=== PATIENT | female | born 1960 | race Caucasian/White ===

== ENCOUNTER 2019-10-16 14:29 | Outpatient (CLI) | payer BC, SELFPAY ==
--- NOTE | ~2019-10-16 | US_ITS ---
EXAMINATION: US venous doppler LE RT DATE: 10/16/2019 15:17 INDICATION: Right lower limb pain and swelling. TECHNIQUE: Grayscale ultrasound images without and with compression and Doppler ultrasound images of the right lower extremity veins were obtained. COMPARISON: None. FINDINGS: The visualized portions of right common femoral vein, profunda (deep) femoral vein, femoral vein, pop liteal vein, peroneal trunk, posterior tibial veins, peroneal veins, gastrocnemius vein and greater s aphenous vein outflow are patent. There are couple complex fluid collections which are predominantly hypoechoic with small anechoic regions and without internal flow on color Doppler at the medial popli teal fossa and proximal calf. The smaller which measures 2.4 x 0.8 x 2.1 cm is located at the poplite al fossa appears to extend deep with configuration suggestive of a Angel's cyst. The larger lenticula r collection extends along the periphery of the musculature, likely medial head of the gastrocnemius at the medial left calf and measures 6.7 x 5.3 x 1.6 cm. There does appear to be communication betwee n the 2 fluid collections. IMPRESSION: 1. No deep venous thrombosis in the right lower limb. 2. A couple loculated complex fluid collections at the right popliteal fossa extending to the medial left calf which could represent either Angel's cyst with marked synovitis, blood or other proteinaceo us fluid, or hematoma related to trauma such as contusion or muscle strain. Differential would also i nclude abscess in the appropriate clinical setting although there is no surrounding hyperemia to elev ate suspicion. Reviewed, dictated and finalized at location A. IMPRESSION: 1. No deep venous thrombosis in the right lower limb. 2. A couple loculated complex fluid collections at the right popliteal fossa ex tending to the medial left calf which could represent either Angel's cyst with marked synovitis, blood or other proteinaceous fluid, or hematoma related to tr auma such as contusion or muscle strain. Differential would also include absces s in the appropriate clinical setting although there is no surrounding hyperemi a to elevate suspicion.
== END 2019-10-16 14:30 | disposition home or self-care (01) ==
PROVIDERS: PCP Physician Assistant; Visit Provider Physician Assistant
DX: M79.89 Other specified soft tissue disorders (principal)
CPT/HCPCS: 93971

== ENCOUNTER 2019-11-29 15:46 | Outpatient (CLI) | payer BC, SELFPAY ==
--- NOTE | ~2019-11-29 | XR_ITS ---
EXAMINATION: XR elbow LT 2V DATE: 11/29/2019 16:14 INDICATION: Posterior left elbow pain and swelling post fall TECHNIQUE: Anteroposterior and lateral views of the left elbow were obtained. COMPARISON: None. FINDINGS: Alignment is normal. No fracture or joint effusion. Joint spaces are normal. Minimal soft tissue swel ling posterior to the olecranon. IMPRESSION: 1. No left elbow joint effusion or osseous abnormality.. Reviewed, dictated and finalized at location A.
== END 2019-11-29 15:47 | disposition home or self-care (01) ==
PROVIDERS: PCP Family Medicine; Visit Provider Family Medicine
DX: M79.602 Pain in left arm (principal); M79.89 Other specified soft tissue disorders
CPT/HCPCS: 73070

== ENCOUNTER → 2019-12-21 08:12 | Outpatient (CLI) | payer BC, SELFPAY ==
--- NOTE | ~2019-12-21 | MR_ITS ---
EXAMINATION: MR knee RT wo con DATE: 12/21/2019 08:55 INDICATION: Right knee pain and swelling TECHNIQUE: Magnetic resonance imaging (MRI) of the right knee was performed without intravenous contr ast. Sequences included coronal PD-weighted FSE, coronal PD-weighted FS FSE, sagittal T2-weighted FS E, sagittal PD-weighted FS FSE and axial PD weighted fat saturated FSE. COMPARISON: Right knee radiographs dated 11/01/2019 FINDINGS: Medial compartment: Mild increased intrasubstance signal at the posterior horn of the medial meniscus which does not cont act the articular surface consistent with mucoid degeneration without discrete tear. Articular carti nikky is normal. Lateral compartment: Lateral meniscus is normal. Chondral fissuring with minimal underlying subarticular edema at the medi al side of the lateral tibial plateau along the shoulder the intercondylar eminence. Patellofemoral compartment: Deep chondral fissuring without degenerative subarticular changes at the inferior aspect of the later al patellar facet and extending across the central aspect of the patellar apical ridge and medial fac et. Chondral fissuring with underlying mild cortical irregularity and subarticular edema at the centr al inferior aspect of the trochlear groove. Ligaments and tendons: Anterior and posterior cruciate ligaments are normal. There is thickening and mild increased signal a t the proximal fibular collateral ligament without surrounding edema consistent with scarring related to chronic sprain. There is mild fluid signal extending proximally and distally along the deep and s uperficial margin of the otherwise normal-appearing medial collateral ligament which is likely reacti ve related to the large knee joint effusion however in the the clinical setting of acute injury this would also be consistent with an acute low-grade sprain. The extensor mechanism is normal. The visual ized medial and lateral hamstring tendons as well as the iliotibial band are normal. Fluid: Large right knee joint effusion with mild synovitis at the suprapatellar pouch and along the posterio r margin of Hoffa's fat pad. There is extension of a small amount of fluid as well as mild synovitis within the popliteal recess. Additional synovitis within a moderate-sized Angel's cyst with mild surr ounding edema. No loose osteochondral bodies identified. Osseous/other: Bone alignment is normal. Red marrow reexpansion in the metadiaphyseal region of the distal femur. No fracture or pathologic marrow replacing process. IMPRESSION: 1. Mild osteoarthritis with regions of moderate grade chondromalacia in the lateral compartment and m oderate to high-grade chondromalacia in the patellofemoral compartment. 2. Nonspecific large right knee joint effusion. Could consider diagnostic arthrocentesis. 3. Fluid signal along side the otherwise normal-appearing medial collateral ligament which in the set ting of acute knee injury be consistent with low-grade ligament sprain. In the absence of trauma this is more likely reactive related to the joint effusion. 4. Moderate-sized Angel's cyst. Reviewed, dictated and finalized at location A. IMPRESSION: 1. Mild osteoarthritis with regions of moderate grade chondromalacia in the lat eral compartment and moderate to high-grade chondromalacia in the patellofemora l compartment. 2. Nonspecific large right knee joint effusion. Could consider diagnostic arthr ocentesis. 3. Fluid signal along side the otherwise normal-appearing medial collateral lig ament which in the setting of acute knee injury be consistent with low-grade li gament sprain. In the absence of trauma this is more likely reactive related to the joint effusion. 4. Moderate-sized Angel's cyst.
== END ==
PROVIDERS: PCP Family Medicine; Visit Provider Orthopaedic Surgery
DX: M71.21 Synovial cyst of popliteal space [Baker], right knee (principal); M17.11 Unilateral primary osteoarthritis, right knee
CPT/HCPCS: 73721

== ENCOUNTER 2019-12-27 15:17 | Outpatient (CLI) | payer BC, SELFPAY ==
--- NOTE | ~2019-12-27 | MM_ITS ---
EXAMINATION: MM screening [facility] BI w sonia HISTORY: Screening mammogram TECHNIQUE: Craniocaudal and mediolateral oblique 3-D tomosynthesis images were obtained and synthetic 2-D images were generated. CAD analysis was submitted and interpreted. COMPARISON: 09/28/2017, 02/13/2016, 02/09/2016, 10/18/2014 BREAST PARENCHYMAL COMPOSITION: There are scattered areas of fibroglandular density. FINDINGS: Stable intramammary lymph node is present in the posterior third of the outer right breast. There is no evidence of suspicious mass, calcification, or architectural distortion to suggest malig angy in either breast. There has been no suspicious interval change. IMPRESSION: 1. No mammographic evidence of malignancy. 2. Recommend routine screening mammography in one year. BI-RADS Category 1: Negative Reviewed, dictated and finalized at location A.
== END 2019-12-27 15:18 | disposition home or self-care (01) ==
LOC: ANHIMG 15:18
PROVIDERS: PCP Family Medicine; Visit Provider Physician Assistant
DX: Z12.31 Encounter for screening mammogram for malignant neoplasm of breast (principal)
CPT/HCPCS: 77063; 77067

== ENCOUNTER → 2019-12-27 15:39 | Outpatient (CLI) | payer BC, SELFPAY ==
--- NOTE | ~2019-12-27 | XR_ITS ---
XR hand RT min 3V, XR hand LT min 3V 12/27/2019 15:52 Indication: Primary generalized osteoarthritis. Joint pain. Procedure: 3 views of each hand Comparison: No prior studies for comparison. Findings: There is mild osteoarthritis of the right triscaphe, first CMC, MCP and IP joints. Normal m ineralization. No fracture or traumatic malalignment. Corticated ossific density adjacent to the ulna r styloid, likely an old avulsion fracture. No foreign bodies. 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 2: No significant abnormality of the left hand. Reviewed, dictated and finalized at location B. 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 2: No significant abnormality of the left hand. 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 2: No significant abnormality of the left hand.
== END ==
PROVIDERS: PCP Family Medicine
DX: M15.0 Primary generalized (osteo)arthritis (principal)
CPT/HCPCS: 73130

== ENCOUNTER 2020-01-24 08:31 | Outpatient (CLI) | payer BC, SELFPAY ==
--- NOTE | ~2020-01-24 | MR_ITS ---
EXAMINATION: MR knee LT wo con DATE: 01/24/2020 09:27 INDICATION: Chronic generalized left knee pain. TECHNIQUE: Magnetic resonance imaging (MRI) of the left knee was performed without intravenous contra st. Sequences included coronal PD-weighted FSE, coronal PD-weighted FS FSE, sagittal T2-weighted FSE , sagittal PD-weighted FS FSE and axial PD weighted fat saturated FSE. COMPARISON: None. FINDINGS: Evaluation mildly limited by small amount of motion artifact or blurring most prominent on the fat-sa turated images. Medial compartment: Medial meniscus is normal. Partial-thickness chondral fissuring without degenerative subarticular gil nges at the central aspect of the anterior weightbearing medial femoral condyle. Lateral compartment: Lateral meniscus is normal. Partial-thickness chondral fissuring without degenerative subarticular ch anges at the posterior central aspect of the lateral tibial plateau. Patellofemoral compartment: Partial-thickness cartilage loss and fissuring at the patellar apical ridge. Ligaments and tendons: The posterior cruciate ligament is normal. The anterior cruciate ligament demonstrates a normal angle relative to Blumensaat line. It appears thickened with prominent increased intrasubstance signal adry rounding a subtle low signal intensity linear ligament fibers resulting in a celery stalk appearanc e which would be consistent with mucoid degeneration without definitive tear. The medial collateral l igament and fibular collateral ligament complex are normal. The extensor mechanism is normal. The vis ualized medial and lateral hamstring tendons as well as the iliotibial band are normal. Fluid: Large left knee joint effusion with synovitis, mild at the suprapatellar pouch and more prominent aye ng the posterior margins of Hoffa's fat pad. Moderate-sized multiloculated Angel's cyst. There is a s mall loose body within a deeper component of the Angel's cyst. No intra-articular loose osteochondral bodies identified. Osseous/other: There is mild marrow edema in the femur at the medial side of the intercondylar notch which appears c entered along the footplate of the anterior cruciate ligament. Mild cystic change at the proximal tib ia at the posterior aspect of the intercondylar eminence near the insertion of the posterior cruciate ligament and posterior horn of the lateral meniscus. Otherwise normal marrow signal. No fracture or pathologic marrow replacing process. IMPRESSION: 1. Prominent mucoid degeneration of the anterior cruciate ligament without definitive tear. Correlate with physical exam to assess for degree of functional integrity. 2. Mild tricompartmental osteoarthritis with regions of moderate grade chondromalacia in all 3 compar tments as detailed above. 3. Large knee joint effusion with prominent synovitis along the posterior margin of Hoffa's fat pad. 4. Moderate-sized Angel's cyst. Reviewed, dictated and finalized at location A. IMPRESSION: 1. Prominent mucoid degeneration of the anterior cruciate ligament without defi nitive tear. Correlate with physical exam to assess for degree of functional in tegrity. 2. Mild tricompartmental osteoarthritis with regions of moderate grade chondrom alacia in all 3 compartments as detailed above. 3. Large knee joint effusion with prominent synovitis along the posterior angeline n of Hoffa's fat pad. 4. Moderate-sized Angel's cyst.
== END 2020-01-24 08:32 | disposition home or self-care (01) ==
PROVIDERS: PCP Family Medicine; Visit Provider Orthopaedic Surgery
DX: M71.22 Synovial cyst of popliteal space [Baker], left knee (principal); M25.462 Effusion, left knee; M17.12 Unilateral primary osteoarthritis, left knee
CPT/HCPCS: 73721

== ENCOUNTER 2020-02-11 08:46 | Outpatient (CLI) | payer BC, SELFPAY ==
--- NOTE | 2020-02-11 08:49 | ECG_ITS ---
Measurements Intervals [place] Rate: 81 P: 33 CT: 151 QRS: 28 QRSD: 83 T: 82 QT: 357 QTc: 416 Interpretive Statements SINUS RHYTHM DELAYED PRECORDIAL R/S TRANSITION CONSIDER INFERIOR INFARCT, AGE INDETERMINATE NONSPECIFIC T-WAVE ABNORMALITY- HIGH LATERAL LEADS BASELINE ARTIFACT- I, III, AVL ABNORMAL ECG Electronically Signed On 02-11-2020 9:01:11 CDT by Julián Wiggins D.O.
== END 2020-02-11 08:47 | disposition home or self-care (01) ==
LOC: ANHSURGERY 08:49
PROVIDERS: PCP Family Medicine; Visit Provider Orthopaedic Surgery
DX: E78.5 Hyperlipidemia, unspecified (principal); R94.31 Abnormal electrocardiogram [ECG] [EKG]
CPT/HCPCS: 93005

== ENCOUNTER 2020-02-18 00:54 | Outpatient (CLI) | payer BC, SELFPAY ==
[2020-02-18 16:32] LABS: SARS-CoV-2 RNA PCR Negative
== END 2020-02-18 00:55 | disposition home or self-care (01) ==
LOC: ANHCOVIDDT 00:55
PROVIDERS: PCP Family Medicine; Visit Provider Orthopaedic Surgery
DX: Z01.812 Encounter for preprocedural laboratory examination (principal); Z20.828 Contact with and (suspected) exposure to other viral communicable diseases
CPT/HCPCS: 87635; C9803; U0003

== ENCOUNTER 2020-02-20 00:40 | Day surgery (SDC) | payer BC, SELFPAY ==
[2020-02-07 11:17] VITALS: BMI 42.5
[2020-02-20] VITALS (10 sets, daily range): BP systolic 119–168; BP diastolic 58–93; PULSE 85–105; RESP 10–20; TEMP 36.1–36.9; O2SAT 98–100
--- NOTE | 2020-02-20 06:51 | WPDANESEPPF ---
Anes - Initial Pre Proc Eval Procedure: Operation Date: 02/20/20 07:30 Proposed Procedures p Left Knee Arthroscopy, Proceed As Indicated - Gerardo Joiner MD Date/Time: 02/20/20 06:51 Surgeon: Gerardo Joiner MD Pre Op Diagnosis: Left Knee Chondromalacia Patient Data Age: 59 Gender: F Height: 5 ft 5 in Weight: 116.1 kg Allergies Allergy/AdvReac Type Severity Reaction Status Date / Time No Known Allergies Allergy NONE Verified 02/20/20 06:14 Home Medications Medication Instructions Recorded Confirmed Type simvastatin 40 mg tablet 40 mg PO DAILY #90 tablet 07/17/19 02/20/20 Rx duloxetine 60 mg capsule,delayed 60 mg PO DAILY 09/28/19 02/20/20 History release ergocalciferol (vitamin D2) 1,250 1,250 mcg PO WEEKLY 12/11/19 02/20/20 History mcg (50,000 unit) capsule chlorhexidine gluconate 4 % 1 applic TOPICAL ONCE #237 ml 02/05/20 02/20/20 Rx topical liquid Doterra On Guard 1 cap PO DAILY 02/07/20 02/20/20 History glucos sul [id number] 1 cap PO DAILY 02/07/20 02/20/20 History [Glucosamine Chondroitin] Patient hx anesthesia problems: none Family hx anesthesia problems: none PMFSH Past Medical History Medical History Arthritis High cholesterol Sleep apnea Surgical History Surgical History S/P hysterectomy Family History Family History Father Carcinoma of colon Patient's father is Mother Family history of malignant neoplasm of breast in first degree relative Grandparent Family history of malignant neoplasm of breast Other Cerebrovascular accident Diabetes mellitus Family history of gout Social History Social History Smoking packs per day: 0.5 Smoking cigarettes per day: 10.0 Years smoked: 5 Smoking pack-years: 2.50 Smoking status: Former smoker Tobacco type: cigarettes Second hand tobacco smoke exposure: No Smoking end date: 06/13/84 Additional smoking assessment comments: QUIT 1994 Alcohol intake: never Spiritual care concerns: No Anes - Eval Final PreProcedure Day of Procedure 02/20/20 06:51 Patient weight: morbidly obese Heart: regular rate and rhythm Lungs: clear to auscultation Airway: Mallampati scale class II Neurological: alert and oriented Last oral intake: >/= 8 hours ASA classification: III Emergent: no Anesthetic plan: proceed Anesthesia type and monitoring: general LMA and standard monitoring Informed Consent: The patient's anesthetic plan and its attendant risks and benefits were discussed with the patient/family/POA. Questions were solicited and answers provided to the satisfaction of the patient/family/POA.
[2020-02-20] MEDS: CELECOXIB 200 MG CAPSULE PO (06:58)
[2020-02-20] MEDS: LACTATED RINGERS 1,000 ML 30 ML IV CONT ×2 (06:58→08:42)
[2020-02-20] MEDS: ACETAMINOPHEN 500 MG TABLET 1000 MG PO (06:58)
--- NOTE | 2020-02-20 07:15 | WPDHPUPDATE1 ---
History and Physical Update Update Date/Time: 02/20/20 07:15 History and Physical has been reviewed, including an updated exam of the patient. There are NO changes in the patient's condition. Risks, benefits, and alternatives have been discussed and questions answered. Patient agrees to proceed with procedure.
[2020-02-20] MEDS: ceFAZolin 2 GM/D5W 50 ML 2 GM/50 ML BAG IVPB (07:27)
--- NOTE | 2020-02-20 08:43 | PM.PROC ---
Procedure Note - Detailed Date of procedure: 02/20/20 Pre-op diagnosis: Left Knee Chondromalacia Post-op diagnosis: other (medial meniscus tear, lateral meniscus tear, chondromalacia, synovitis) Procedure performed: LEFT KNEE SCOPE WITH PARTIAL MEDIAL MENISCECTOMY, PARTIAL LATERAL MENISCECTOMY AND MAJOR SYNOVECTOMY Description of procedure: PATIENT WAS TAKEN TO THE OR. LEFT LEG WAS PREPPED AND DRAPED STERILE. TROCARS WERE PLACED IN THE USUAL FASHION. CAMERA WAS INTRODUCED. THERE WAS CHONDROMALACIA TO THE PATELLA FEMORAL JOINT. THERE WAS A LOT OF SYNOVITIS IN ALL COMPARTMENTS. THE MEDIAL COMPARTMENT SHOWED CHONDROMALACIA TO THE MED FEMORAL CONDYLE. A SHAVER WAS USED TO PREFORM A CHONDROPLASTY. THERE WAS A COMPLEX MEDIAL MENISCUS TEAR. THE TEAR WAS RESECTED WITH A BITER AND A SHAVER DOWN TO A SMOOTH BASE. ABOUT 15% OF THE MENISCUS WAS REMOVED. THE ACL WAS INTACT. THE LATERAL MENISCUS WAS TORN AT THE ANTERIOR HORN. THE TEAR WAS RESECTED. THE LAT COMPARTMENT HAD GRADE 2 CHONDROMALACIA AT THE LATERAL PLATEAU. CHONDROPLASTY WAS PREFORMED. A SYNOVECTOMY WAS PREFORMED WELL. THE PATELLO FEMORAL JOINT UNDERWENT CHONDROPLASTY. THERE WAS GRADE 3 CHONDROMALACIA IN MOST OF THE TROCHLEA AND PART OF THE PATELLA. SYNOVECTOMY WAS PREFORMED IN THE SUPERIOR MEDIAL COMPARTMENT. THE WOUNDS WERE APPROXIMATED WITH 4.0 NYLON. STERILE DRESSING WAS APPLIED. PATIENT WAS EXTUBATED. Anesthesia: GLMA Surgeon: Gerardo Joiner MD Estimated blood loss (mL): 5 Complications: No immediate complications Condition: stable Disposition: PACU
--- NOTE | 2020-02-20 09:30 | SUR.PHASEI ---
Dr. Love aware of high BP and said to follow up w/ primary doctor and just monitor for now.
== END 2020-02-20 10:39 | disposition home or self-care (01) ==
PROVIDERS: PCP Family Medicine; Visit Provider Orthopaedic Surgery
PROC: (CPT 29870; principal; 2020-02-20 07:30)
DX: M22.42 Chondromalacia patellae, left knee (principal); M23.332 Other meniscus derangements, other medial meniscus, left knee; M23.342 Other meniscus derangements, anterior horn of lateral meniscus, left knee; M65.852 Other synovitis and tenosynovitis, left thigh; E78.00 Pure hypercholesterolemia, unspecified; G47.30 Sleep apnea, unspecified; Z87.891 Personal history of nicotine dependence; E66.01 Morbid (severe) obesity due to excess calories; Z68.41 Body mass index [BMI] 40.0-44.9, adult
CPT/HCPCS: 29880; A9270; J0690; J1100; J2250; J2405; J2704; J3010; J7120

== ENCOUNTER 2020-04-19 01:09 | Outpatient (CLI) | payer BC, SELFPAY ==
[2020-04-19 22:26] LABS: SARS-CoV-2 RNA PCR Negative
== END 2020-04-19 01:10 | disposition home or self-care (01) ==
LOC: ANHCOVIDDT 01:09
PROVIDERS: PCP Family Medicine; Visit Provider Orthopaedic Surgery
DX: Z01.818 Encounter for other preprocedural examination (principal); Z20.828 Contact with and (suspected) exposure to other viral communicable diseases
CPT/HCPCS: 87635; C9803; U0003

== ENCOUNTER 2020-04-23 00:38 | Day surgery (SDC) | payer BC, SELFPAY ==
[2020-04-11 09:53] VITALS: BMI 42.5
--- NOTE | 2020-04-22 13:35 | WPDANESEPPF ---
Anes - Initial Pre Proc Eval Procedure: Operation Date: 04/23/20 10:00 Proposed Procedures p Right Knee Arthroscopy, Proceed As Indicated - Gerardo Joiner MD Date/Time: 04/22/20 13:35 Surgeon: Gerardo Joiner MD Pre Op Diagnosis: right knee chondromylasia Patient Data Age: 60 Gender: F Height: 1.65 m Weight: 116.12 kg Allergies Allergy/AdvReac Type Severity Reaction Status Date / Time No Known Allergies Allergy NONE Verified 04/23/20 08:06 Home Medications Medication Instructions Recorded Confirmed Type ergocalciferol (vitamin D2) 1,250 1,250 mcg PO WEEKLY 12/11/19 04/23/20 History mcg (50,000 unit) capsule Doterra On Guard 1 cap PO DAILY 02/07/20 04/23/20 History Glucosamine Chondroitin 1 cap PO DAILY 02/07/20 04/23/20 History duloxetine 30 mg capsule,delayed 90 mg PO DAILY #90 cap 03/19/20 04/23/20 Rx release simvastatin 40 mg tablet 40 mg PO DAILY #90 tablet 04/21/20 04/23/20 Rx Patient hx anesthesia problems: none Family hx anesthesia problems: none PMFSH Past Medical History Medical History (Updated 04/22/20 @ 13:36 by Yayo Herbert MD) Anxiety and depression Arthritis Depression Essential hypertension High cholesterol Hyperlipidemia Hypothyroidism IFG (impaired fasting glucose) Morbid obesity with BMI of 40.0-44.9, adult AMBER (obstructive sleep apnea) Sleep apnea Surgical History Surgical History S/P hysterectomy Family History Family History Father Carcinoma of colon Patient's father is Mother Family history of malignant neoplasm of breast in first degree relative Grandparent Family history of malignant neoplasm of breast Other Cerebrovascular accident Diabetes mellitus Family history of gout Social History Social History Smoking packs per day: 0.5 Smoking cigarettes per day: 10.0 Years smoked: 5 Smoking pack-years: 2.50 Smoking status: Former smoker Tobacco type: cigarettes Second hand tobacco smoke exposure: No Smoking end date: 06/13/84 Additional smoking assessment comments: QUIT 1994 Alcohol intake: never Substance use: never Substance use type: does not use Gender identity (if verbalized by the patient): Female Spiritual care concerns: No Anes - Eval Final PreProcedure Day of Procedure 04/22/20 13:35 Patient weight: morbidly obese Heart: regular rate and rhythm Lungs: clear to auscultation and normal air movement Airway: Mallampati scale class II Neurological: alert and oriented Last oral intake: >/= 8 hours ASA classification: III Emergent: no Anesthetic plan: proceed Anesthesia type and monitoring: general LMA Informed Consent: The patient's anesthetic plan and its attendant risks and benefits were discussed with the patient/family/POA. Questions were solicited and answers provided to the satisfaction of the patient/family/POA.
[2020-04-23] VITALS (11 sets, daily range): BP systolic 87–162; BP diastolic 40–94; PULSE 99–113; RESP 11–18; TEMP 36.1; O2SAT 95–100
[2020-04-23] MEDS: CELECOXIB 200 MG CAPSULE PO (08:23)
[2020-04-23] MEDS: ACETAMINOPHEN 500 MG TABLET 1000 MG PO (08:23)
[2020-04-23] MEDS: LACTATED RINGERS 1,000 ML 30 ML IV CONT ×2 (08:25→11:59)
--- NOTE | 2020-04-23 10:15 | SUR.PREOP ---
0900 PT DENIES NEEDS AT THIS TIME 1015 PT UPDATED ON SURGRY TIME DELAY
--- NOTE | 2020-04-23 10:23 | WPDHPUPDATE1 ---
History and Physical Update Update Date/Time: 04/23/20 10:23 History and Physical has been reviewed, including an updated exam of the patient. There are NO changes in the patient's condition. Risks, benefits, and alternatives have been discussed and questions answered. Patient agrees to proceed with procedure.
[2020-04-23] MEDS: ceFAZolin 2 GM/D5W 50 ML 2 GM/50 ML BAG IVPB (10:29)
[2020-04-23] MEDS: BUPIVACAINE HCL 0.5% PF 30 ML VIAL INFILTRATE (11:16)
--- NOTE | 2020-04-23 11:42 | P.OP_ITS ---
Procedure Note - Detailed Date of procedure: 04/23/20 Pre-op diagnosis: right knee chondromylasia Post-op diagnosis: other Procedure performed: MEDIAL MEN TEAR, LATERAL MENISCUS TEAR Description of procedure: PATIENT WAS TAKEN TO THE OR. RIGHT LEG WAS PREPPED AND DRAPED STERILE. TROCARS WERE PLACED IN THE USUAL FASHION. CAMERA WAS INTRODUCED. THERE WAS ABUNDANT FIBRINOUS SYNOVITIS. THERE WAS CHONDROMALACIA TO THE PATELLA FEMORAL JOINT. THERE WAS A LOT OF SYNOVITIS IN ALL COMPARTMENTS. THE MEDIAL COMPARTMENT SHOWED CHONDROMALACIA TO THE MED FEMORAL CONDYLE. A SHAVER WAS USED TO PREFORM A CHONDROPLASTY. THERE WAS A COMPLEX MEDIAL MENISCUS TEAR. THE TEAR WAS RESECTED WITH A BITER AND A SHAVER DOWN TO A SMOOTH BASE. ABOUT 10% OF THE MENISCUS WAS REMOVED. THE ACL WAS INTACT. THE LATERAL MENISCUS WAS TORN AT THE POSTERIOR ROOT. THE TEAR WAS RESECTED. THE LAT COMPARTMENT HAD GRADE 2 CHONDROMALACIA AT THE LATERAL PLATEAU. CHONDROPLASTY WAS PREFORMED. A SYNOVECTOMY WAS PREFORMED WELL. THE PATELLO FEMORAL JOINT UNDERWENT MARIO DROPLASTY. THERE WAS GRADE 3 CHONDROMALACIA OF THE TROCHLEA AND PART OF THE PATELLA. SYNOVECTOMY WAS PREFORMED IN THE SUPERIOR MEDIAL COMPARTMENT. THE WOUNDS WERE APPROXIMATED WITH 4.0 NYLON. STERILE DRESSING WAS APPLIED. PATIENT WAS EXTUBATED. Anesthesia: GLMA Surgeon: Gerardo Joiner MD Estimated blood loss (mL): 5 Complications: No immediate complications Condition: stable Disposition: PACU
[2020-04-23] MEDS: oxyCODONE HCL (*CRX) 5 MG TAB IR PO (13:00)
== END 2020-04-23 14:01 | disposition home or self-care (01) ==
PROVIDERS: PCP Family Medicine; Visit Provider Orthopaedic Surgery
PROC: (CPT 29870; principal; 2020-04-23 10:00)
DX: M22.41 Chondromalacia patellae, right knee (principal); S83.231A Complex tear of medial meniscus, current injury, right knee, initial encounter; S83.281A Other tear of lateral meniscus, current injury, right knee, initial encounter; M65.9 Synovitis and tenosynovitis, unspecified; I10 Essential (primary) hypertension; E78.5 Hyperlipidemia, unspecified; E03.9 Hypothyroidism, unspecified; G47.33 Obstructive sleep apnea (adult) (pediatric); E66.01 Morbid (severe) obesity due to excess calories; Z68.41 Body mass index [BMI] 40.0-44.9, adult; F41.9 Anxiety disorder, unspecified; F32.9 Major depressive disorder, single episode, unspecified; Z79.899 Other long term (current) drug therapy; Z87.891 Personal history of nicotine dependence; X58.XXXA Exposure to other specified factors, initial encounter; Y93.9 Activity, unspecified; Y92.9 Unspecified place or not applicable; Y99.9 Unspecified external cause status
CPT/HCPCS: 29880; A9270; J0690; J1100; J2250; J2405; J2704; J3010; J7120

== ENCOUNTER 2020-12-13 19:35 | Emergency (ER) | payer BC, SELFPAY ==
[2020-12-13 19:37] VITALS: BP 151/81; PULSE 90; RESP 18; TEMP 37.2; O2SAT 100
--- NOTE | 2020-12-13 20:36 | ED.GENADULT ---
HPI - General Adult General Chief complaint: Skin/Abscess/Foreign Body Stated complaint: FOREIGN BODY GI/EPIGASTRIC DISCOMFORT Time Seen by Provider: 12/13/20 20:11 Source: patient Mode of arrival: ambulatory Limitations: no limitations History of Present Illness HPI narrative: Patient is a 6-year-old female complaining of pain when she swallows, felt like the waffle got stuck in my chest . Patient states that she was eating waffle this afternoon and felt like it got stuck in her throat. Patient states that she tried to eat pizza few hours after and it was pain when she swallowed. Patient states that she was able to tolerate liquids, keep it down without spitting up or vomiting. Patient states that she has been drinking to flush it down able to tolerate it but it still hurts when she tries to swallow. Denies any similar episodes in the past. Related Data Home Medications Medication Instructions Recorded Confirmed ergocalciferol (vitamin D2) 1,250 1,250 mcg PO WEEKLY 12/11/19 11/17/20 mcg (50,000 unit) capsule Doterra On Guard 1 cap PO DAILY 02/07/20 11/17/20 Glucosamine Chondroitin 1 cap PO DAILY 02/07/20 11/17/20 hydroxychloroquine 200 mg tablet 200 mg PO BID 11/17/20 11/17/20 Allergies Allergy/AdvReac Type Severity Reaction Status Date / Time No Known Allergies Allergy NONE Verified 12/13/20 20:07 Review of Systems Review of Systems: All systems reviewed & are unremarkable except as noted in HPI and below Constitutional: Constitutional: Denies body ache(s), Denies chills, Denies excessive sweating, Denies fatigue, Denies fever(s), Denies headache(s), Denies lethargy, Denies malaise, Denies weakness and Denies weight loss Eyes: Eyes: Denies blurry vision, Denies change in vision and Denies loss of vision ENT: Denies dizziness, Denies ear discharge, Denies headache(s), Denies lip swelling, Denies epistaxis, Denies nasal congestion, Denies neck pain, Denies throat swelling and Denies tongue swelling Cardiovascular: Cardiovascular: Denies chest pain, Denies chest pain at rest, Denies chest pain with activity, Denies diaphoresis, Denies rapid heart rate, Denies edema, Denies irregular heart rhythm, Denies lightheadedness, Denies palpitations, Denies dyspnea and Denies dyspnea on exertion Respiratory: Respiratory: Denies chest congestion, Denies cough, Denies hemoptysis, Denies dyspnea and Denies dyspnea on exertion Gastrointestinal: Gastrointestinal: Denies abdominal pain, Denies melena, Denies hematochezia, Denies diarrhea, Denies nausea, Denies vomiting and Denies hematemesis Musculoskeletal: Musculoskeletal: Denies abnormal gait, Denies deformity, Denies joint swelling, Denies limited range of motion, Denies neck pain and Denies numbness Neurologic: Denies Abnormal speech present, Denies abnormal gait, Denies confusion, Denies dizziness, Denies headache(s), Denies focal weakness, Denies loss of vision, Denies numbness, Denies Other visual disturbances, Denies Sensory deficit (Neuro) and Denies weakness Psychiatric: Psychiatric: Denies confusion, Denies depression, Denies auditory hallucinations, Denies homicidal ideation and Denies suicidal ideation Endocrine: Endocrine: Denies cold intolerance, Denies excessive sweating, Denies fatigue, Denies heat intolerance and Denies palpitations Hematologic/Lymphatic: Hematologic/Lymphatic: Denies easy bleeding and Denies easy bruising Allergic/Immunologic: Allergic/Immunologic: Denies lip swelling, Denies throat swelling and Denies tongue swelling PMFSH Past Medical History Medical History Anxiety and depression Arthritis Depression Essential hypertension High cholesterol Hyperlipidemia Hypothyroidism IFG (impaired fasting glucose) Morbid obesity with BMI of 40.0-44.9, adult AMBER (obstructive sleep apnea) Sleep apnea Surgical History Surgical History S/P hysterec
[2020-12-13 22:19] VITALS: BP 136/78; PULSE 78; RESP 18; O2SAT 100
== END 2020-12-13 22:19 | disposition home or self-care (01) ==
PROVIDERS: Emergency Provider Emergency Medicine; PCP Family Medicine
DX: T18.128A Food in esophagus causing other injury, initial encounter (principal); I10 Essential (primary) hypertension; F41.9 Anxiety disorder, unspecified; E03.9 Hypothyroidism, unspecified; F32.9 Major depressive disorder, single episode, unspecified; E78.5 Hyperlipidemia, unspecified; F17.210 Nicotine dependence, cigarettes, uncomplicated
CPT/HCPCS: 99281

== ENCOUNTER → 2021-10-31 10:33 | Outpatient (CLI) | payer BC, SELFPAY ==
--- NOTE | ~2021-10-31 | MM_ITS ---
EXAMINATION: MM screening kylie BI w sonia HISTORY: Screening mammogram TECHNIQUE: Craniocaudal and mediolateral oblique 3-D tomosynthesis images were obtained and synthetic 2-D images were generated. CAD analysis was submitted and interpreted. COMPARISON: 12/27/2019 bilateral screening mammogram 09/28/2017 bilateral diagnostic mammogram BREAST PARENCHYMAL COMPOSITION: There are scattered areas of fibroglandular density. FINDINGS: Stable circumscribed benign-appearing intramammary and axillary lymph nodes There is no salma dence of suspicious mass, calcification, or architectural distortion to suggest malignancy in either breast. There has been no suspicious interval change. IMPRESSION: 1. No mammographic evidence of malignancy. 2. Recommend routine screening mammography in one year. BI-RADS Category 2: Benign finding(s). Reviewed, dictated and finalized at location A.
== END ==
PROVIDERS: PCP Family Medicine; Visit Provider Physician Assistant
DX: Z12.31 Encounter for screening mammogram for malignant neoplasm of breast (principal)
CPT/HCPCS: 77063; 77067

== ENCOUNTER 2022-01-05 08:03 | Outpatient (CLI) | payer BC, SELFPAY ==
--- NOTE | 2022-01-27 18:55 | WPDHOMESLEEP ---
Sleep Study - Home Unattended Date of Study: 01/05/22 Ordering Provider: ALISON Guerra Interpreting Provider: Haylee Guillen MD Home Sleep Study Type: Apnea Link Air Height: 1.65 m Weight: 63.503 kg Body Mass Index: 23.3 Neck Circumference (inches): 16 [place]: 15 Reason for Sleep Study Hypersomnolence Sleep History Nichelle Jenkins is a 61-year-old woman with complaints of Restless sleep with frequent tossing and turning at night. She has used an orthodontic device for snoring. She does not awaken from sleep feeling short of breath. She occasionally awakens at night with heartburn, belching or coughing. She frequently snores loudly. She rarely has trouble sleeping with a cold. She does not wake up gasping for breath at night. She constantly sweats excessively at night. She does not notice her heart pounding or beating irregularly at night. She occasionally falls asleep during the day, rarely falls asleep involuntarily but never falls asleep while driving. She does not have loss of muscle tone with strong emotion. She rarely has daytime difficulties due to excessive sleepiness. She does not feel paralyzed on waking or falling asleep and does not have vivid dreamlike scenes upon awakening or falling asleep. She does not feel afraid to go to sleep. She occasionally has nightmares. She frequently remembers her dreams. She frequently has thoughts racing through her mind. She depressed. She rarely has anxiety. She occasionally has muscular tension. She occasionally notices parts of her body jerking. She does not kick at night. She occasionally has crawling and aching feelings in her legs. She rarely experiences any kind of leg pain night. She does not have morning jaw pain or grind her teeth during sleep. She occasionally is bothered by pain during the day. She is not awakened by pain at night. She rarely wakes up feeling stiff in the morning with sore achy muscles are pain in the neck and spine. She has fatigue, memory problems. Normal bedtime is 8:00 p.m. falling asleep within 30 minutes typically awaken 3-4 times at night to get a drink, go to the bathroom and returns to sleep within 15-20 minutes. She wakes at 5-6 the morning. On weekends she stays awake later, 9:00 p.m. and wakes a little later, 8-12 noon. She estimates getting 8-9 hours of sleep at night. She does not take naps in the afternoon or evening. A short nap is not refreshing. She is usually drowsy in the morning for 2 hours or longer. She feels better in the afternoon compared to other times of day. Habits: Quit tobacco years ago. Caffeine 3-4 cups per day. No alcohol or recreational drugs. [facility] Past Medical History Medical History Anxiety and depression Arthritis Depression Diabetes type 2, controlled Essential hypertension High cholesterol Hyperlipidemia Hypothyroidism IFG (impaired fasting glucose) Morbid obesity with BMI of 40.0-44.9, adult AMBER (obstructive sleep apnea) Sleep apnea Surgical History Surgical History S/P hysterectomy Family History Family History Father Carcinoma of colon Patient's father is Mother Family history of malignant neoplasm of breast in first degree relative Grandparent Family history of malignant neoplasm of breast Other Cerebrovascular accident Diabetes mellitus Family history of gout Social History Social History Social History: Smoking packs per day: 0.5 Smoking cigarettes per day: 10.0 Years smoked: 6 Smoking pack-years: 3.00 Smoking status: Former smoker Tobacco type: cigarettes Second hand tobacco smoke exposure: No Smoking end date: 06/13/84 Additional smoking assessment comments: QUIT 1994 Alcohol intake:
[2022-01-27 20:57] VITALS: BMI 23.3
--- NOTE | 2022-04-28 14:30 | SLEEP ---
PT USING MACHINE FO 2 WEEKS
== END 2022-01-06 12:08 | disposition home or self-care (01) ==
LOC: ANHCSM 08:07
PROVIDERS: PCP Family Medicine; Visit Provider Nurse Practitioner Family
DX: G47.33 Obstructive sleep apnea (adult) (pediatric) (principal); R53.83 Other fatigue; R40.0 Somnolence; R06.83 Snoring
CPT/HCPCS: 95806

== ENCOUNTER 2022-01-25 05:06 | Day surgery (SDC) | payer BC, SELFPAY ==
[2022-01-07 13:30] VITALS: BMI 39.9
[2022-01-25 06:58] VITALS: BP 130/77; PULSE 102; RESP 19; TEMP 36.1; O2SAT 100
--- NOTE | 2022-01-25 07:04 | WPDANESEPPF ---
Anes - Initial Pre Proc Eval Procedure: Operation Date: 01/25/22 08:00 Proposed Procedures p Screening Colonoscopy - Marty Wheeler MD Date/Time: 01/25/22 07:04 Surgeon: Marty Wheeler MD Pre Op Diagnosis: family hx of colon ca Patient Data Age: 61 Gender: F Height: 1.65 m Weight: 104.3 kg Last Vital Signs Temp 36.1 C L 01/25/22 06:58 Pulse 102 H 01/25/22 06:58 Resp 19 01/25/22 06:58 BP 130/77 01/25/22 06:58 Pulse Ox 100 01/25/22 06:58 O2 Del Method Room Air 01/25/22 06:58 Allergies Allergy/AdvReac Type Severity Reaction Status Date / Time No Known Allergies Allergy Verified 01/25/22 06:57 Home Medications Medication Instructions Recorded Confirmed Type ergocalciferol (vitamin D2) 1,250 1,250 mcg PO WEEKLY 12/11/19 01/19/22 History mcg (50,000 unit) capsule (Vitamin D2) Doterra On Guard 1 cap PO DAILY 02/07/20 01/19/22 History glucosamine sulf dipot 1 cap PO DAILY 02/07/20 01/19/22 History chlr,msm,chond 550 mg-C 30 mg-rachid 1 mg capsule (Glucosamine Chondroitin) meloxicam 15 mg tablet 15 mg PO DAILY 11/02/21 01/19/22 History fluoride (sodium) 1.1 % dental 1 applic dental DAILY 11/06/21 01/19/22 History cream (SF 5000 Plus) simvastatin 40 mg tablet 40 mg PO DAILY #90 tabs 11/18/21 01/19/22 Rx metformin 500 mg tablet 500 mg PO BID #180 tabs 12/15/21 01/19/22 Rx duloxetine 30 mg capsule,delayed See Rx Instructions .Route 12/17/21 01/19/22 Rx release .COMPLEX #90 caps buspirone 5 mg tablet 5 mg PO TID PRN Anxiety 01/07/22 01/19/22 History Patient hx anesthesia problems: none Family hx anesthesia problems: none Results Review: All pre-operative results and documents have been reviewed as part of the pre-operative evaluation. [facility] Past Medical History Medical History (Updated 01/22/22 @ 14:41 by George Peter DO) Anxiety and depression Arthritis Depression Diabetes type 2, controlled Essential hypertension High cholesterol Hyperlipidemia Hypothyroidism IFG (impaired fasting glucose) Morbid obesity with BMI of 40.0-44.9, adult AMBER (obstructive sleep apnea) Sleep apnea Surgical History Surgical History S/P hysterectomy Family History Family History Father Carcinoma of colon Patient's father is Mother Family history of malignant neoplasm of breast in first degree relative Grandparent Family history of malignant neoplasm of breast Other Cerebrovascular accident Diabetes mellitus Family history of gout Social History Social History Social History: Smoking packs per day: 0.5 Smoking cigarettes per day: 10.0 Years smoked: 6 Smoking pack-years: 3.00 Smoking status: Former smoker Tobacco type: cigarettes Second hand tobacco smoke exposure: No Smoking end date: 06/13/84 Additional smoking assessment comments: QUIT 1994 Alcohol intake: never Substance use: never Substance use type: does not use Additional living arrangements comments: Pt and her mother live together. Gender identity (if verbalized by the patient): Female Sexual Orientation (if Verbalized by the Patient): Straight or Heterosexual Spiritual care concerns: No Anes - Eval Final PreProcedure Day of Procedure 01/25/22 07:04 Patient weight: obese Heart: regular rate and rhythm Lungs: clear to auscultation Airway: Mallampati scale class II Neurological: alert and oriented Last oral intake: >/= 8 hours ASA classification: III Emergent: no Anesthetic plan: proceed Anesthesia type and monitoring: general GIVS and standard monitoring Results Review: All pre-operative results and documents have been reviewed as part of the pre-operative evaluation. Informed Consent: The patient's anesthetic plan and its attendant ri
[2022-01-25] MEDS: LACTATED RINGERS 1,000 ML 150 ML IV CONT (07:11)
[2022-01-25 07:12] LABS: Glucose Point of Care 123 mg/dl (65-105)
--- NOTE | 2022-01-25 07:46 | PM.IMHP ---
H&P: HPI History of Present Illness Date/Time: 01/25/22 07:46 Chief Complaint: Family history of colon cancer. Narrative: This is a 61-year-old white female patient presents for screening colonoscopy. Patient's family history is significant her father had colon cancer. Patient is reports that her current weight appetite and bowel movements are normal. She denies abdominal pain. She has had no bleeding. She presents today for screening exam. Review of Systems Review of Systems: Review of systems noncontributory. [facility] Past Medical History Medical History (Updated 01/25/22 @ 07:48 by Marty Wheeler MD) Anxiety and depression Arthritis Depression Diabetes type 2, controlled Essential hypertension High cholesterol Hyperlipidemia Hypothyroidism IFG (impaired fasting glucose) Morbid obesity with BMI of 40.0-44.9, adult AMBER (obstructive sleep apnea) Sleep apnea Surgical History Surgical History S/P hysterectomy Family History Family History Father Carcinoma of colon Patient's father is Mother Family history of malignant neoplasm of breast in first degree relative Grandparent Family history of malignant neoplasm of breast Other Cerebrovascular accident Diabetes mellitus Family history of gout Social History Social History Social History: Smoking packs per day: 0.5 Smoking cigarettes per day: 10.0 Years smoked: 6 Smoking pack-years: 3.00 Smoking status: Former smoker Tobacco type: cigarettes Second hand tobacco smoke exposure: No Smoking end date: 06/13/84 Additional smoking assessment comments: QUIT 1994 Alcohol intake: never Substance use: never Substance use type: does not use Additional living arrangements comments: Pt and her mother live together. Gender identity (if verbalized by the patient): Female Sexual Orientation (if Verbalized by the Patient): Straight or Heterosexual Spiritual care concerns: No Meds Home Medications and Allergies Home Medications Medication Instructions Recorded Confirmed Type ergocalciferol (vitamin D2) 1,250 1,250 mcg PO WEEKLY 12/11/19 01/19/22 History mcg (50,000 unit) capsule (Vitamin D2) Doterra On Guard 1 cap PO DAILY 02/07/20 01/19/22 History glucosamine sulf dipot 1 cap PO DAILY 02/07/20 01/19/22 History chlr,msm,chond 550 mg-C 30 mg-rachid 1 mg capsule (Glucosamine Chondroitin) meloxicam 15 mg tablet 15 mg PO DAILY 11/02/21 01/19/22 History fluoride (sodium) 1.1 % dental 1 applic dental DAILY 11/06/21 01/19/22 History cream (SF 5000 Plus) simvastatin 40 mg tablet 40 mg PO DAILY #90 tabs 11/18/21 01/19/22 Rx metformin 500 mg tablet 500 mg PO BID #180 tabs 12/15/21 01/19/22 Rx duloxetine 30 mg capsule,delayed See Rx Instructions .Route 12/17/21 01/19/22 Rx release .COMPLEX #90 caps buspirone 5 mg tablet 5 mg PO TID PRN Anxiety 01/07/22 01/19/22 History Allergies Allergy/AdvReac Type Severity Reaction Status Date / Time No Known Allergies Allergy Verified 01/25/22 06:57 Vital Signs Vital Signs - 24 hr 01/25/22 06:58 Temperature 97 F L Pulse Rate 102 H Respiratory Rate 19 Blood Pressure 130/77 Pulse Oximetry 100 Oxygen Delivery Room Air Exam Narrative: Physical exam reveals patient to be alert. Vital signs stable. HEENT exam is unremarkable. Patient is anicteric. Lungs are clear to auscultation and percussion. Heart is without murmur or extra sounds. Abdominal exam bowel sounds are present soft nontender with no organomegaly. Digital external rectal exam is normal. Assessment and Plan Assessment and plan (1) Morbid obesity with BMI of 40.0-44.9, adult: Code(s): E66.01 - Morbid (severe) obesity due to excess calories; Z68.41 - Body mass index [BMI]
[2022-01-25 08:18] VITALS: BP 132/78; PULSE 95; RESP 22; O2SAT 97
[2022-01-25 08:28] VITALS: BP 122/75; PULSE 82; RESP 20; O2SAT 98
[2022-01-25 08:38] VITALS: BP 115/64; PULSE 98; RESP 20; O2SAT 98
== END 2022-01-25 08:46 | disposition home or self-care (01) ==
PROVIDERS: PCP Family Medicine; Visit Provider Internal Medicine Gastroenterology
PROC: 0DJD8ZZ Inspection of Lower Intestinal Tract, Via Natural or Artificial Opening Endoscopic (ICD-10-PCS; CPT 45378; principal; 2022-01-25 08:00)
DX: Z12.11 Encounter for screening for malignant neoplasm of colon (principal); Z80.0 Family history of malignant neoplasm of digestive organs; K64.8 Other hemorrhoids; F41.9 Anxiety disorder, unspecified; F32.A Depression, unspecified; G47.33 Obstructive sleep apnea (adult) (pediatric); E11.9 Type 2 diabetes mellitus without complications; E78.00 Pure hypercholesterolemia, unspecified; E03.9 Hypothyroidism, unspecified; Z87.891 Personal history of nicotine dependence; E66.01 Morbid (severe) obesity due to excess calories; Z68.38 Body mass index [BMI] 38.0-38.9, adult; Z79.84 Long term (current) use of oral hypoglycemic drugs
CPT/HCPCS: 45378; 82948; J2704; J7120

== ENCOUNTER 2022-04-05 18:29 | Emergency (ER) | payer BC, SELFPAY ==
--- NOTE | ~2022-04-05 | XR_ITS ---
XR hand LT min 3V DATE: 04/05/2022 18:53 INDICATION: Hand injury, pain TECHNIQUE: 3 views COMPARISON: None FINDINGS: There is mild osteophyte is involving primarily the interphalangeal joints. No fracture or dislocation, periosteal reaction or bone destruction, erosive change or chondrocalcino sis. IMPRESSION: No fracture or dislocation Reviewed, dictated and finalized at location A. IMPRESSION: No fracture or dislocation
[2022-04-05 18:35] VITALS: BP 128/72; PULSE 70; RESP 16; TEMP 37.2; O2SAT 99
--- NOTE | 2022-04-05 19:32 | ED.UPPEXIN ---
HPI - Extremity Injury (Upper) General Chief Complaint: Extremity Injury, Upper Stated Complaint: lt hand injury Time Seen by Provider: 04/05/22 19:33 History of Present Illness HPI narrative: 61-year-old is Related Data Home Medications Medication Instructions Recorded Confirmed ergocalciferol (vitamin D2) 1,250 1,250 mcg PO WEEKLY 12/11/19 01/19/22 mcg (50,000 unit) capsule (Vitamin D2) Doterra On Guard 1 cap PO DAILY 02/07/20 01/19/22 glucosamine sulf dipot 1 cap PO DAILY 02/07/20 01/19/22 chlr,msm,chond 550 mg-C 30 mg-rachid 1 mg capsule (Glucosamine Chondroitin) meloxicam 15 mg tablet 15 mg PO DAILY 11/02/21 01/19/22 fluoride (sodium) 1.1 % dental 1 applic dental DAILY 11/06/21 01/19/22 cream (SF 5000 Plus) buspirone 5 mg tablet 5 mg PO TID PRN Anxiety 01/07/22 01/19/22 Allergies Allergy/AdvReac Type Severity Reaction Status Date / Time No Known Allergies Allergy Verified 01/25/22 06:57 [facility] Past Medical History Medical History Anxiety and depression Arthritis Depression Diabetes type 2, controlled Essential hypertension High cholesterol Hyperlipidemia Hypothyroidism IFG (impaired fasting glucose) Morbid obesity with BMI of 40.0-44.9, adult AMBER (obstructive sleep apnea) Sleep apnea Surgical History Surgical History S/P hysterectomy Family History Family History Father Carcinoma of colon Patient's father is Mother Family history of malignant neoplasm of breast in first degree relative Grandparent Family history of malignant neoplasm of breast Other Cerebrovascular accident Diabetes mellitus Family history of gout Social History Social History Social History: Smoking packs per day: 0.5 Smoking cigarettes per day: 10.0 Years smoked: 6 Smoking pack-years: 3.00 Smoking status: Former smoker Tobacco type: cigarettes Second hand tobacco smoke exposure: No Smoking end date: 06/13/84 Additional smoking assessment comments: QUIT 1994 Alcohol intake: never Substance use: never Substance use type: does not use Additional living arrangements comments: Pt and her mother live together. Gender identity (if verbalized by the patient): Female Sexual Orientation (if Verbalized by the Patient): Straight or Heterosexual Spiritual care concerns: No Course Vital Signs Vital signs: Vital Signs Temperature 37.2 C 04/05/22 18:35 Pulse Rate 70 04/05/22 18:35 Respiratory Rate 16 04/05/22 18:35 Blood Pressure 128/72 04/05/22 18:35 Pulse Oximetry 99 04/05/22 18:35 Oxygen Delivery Room Air 04/05/22 18:35 Temperature 37.2 C 04/05/22 18:35 Pulse Rate 70 04/05/22 18:35 Respiratory Rate 16 04/05/22 18:35 Blood Pressure 128/72 04/05/22 18:35 Pulse Oximetry 99 04/05/22 18:35 Oxygen Delivery Room Air 04/05/22 18:35 Discharge Plan Discharge Prescriptions: No Action ergocalciferol (vitamin D2) [Vitamin D2] 1,250 mcg (50,000 unit) capsule 1,250 mcg PO WEEKLY fluoride (sodium) [SF 5000 Plus] 1.1 % cream 1 applic dental DAILY meloxicam 15 mg tablet 15 mg PO DAILY Glucosamine Chondroitin 550-30-1 mg Capsule 1 cap PO DAILY Doterra On Guard 1 cap PO DAILY buspirone 5 mg tablet 5 mg PO TID PRN (Reason: Anxiety) simvastatin 40 mg tablet 40 mg PO DAILY Qty: 90 2RF duloxetine 30 mg capsule,delayed release(DR/EC) See Rx Instructions .ROUTE .COMPLEX Qty: 90 5RF Dose Instruction: TAKE 3 CAPSULES BY MOUTH DAILY Rx Instructions: TAKE 3 CAPSULES BY MOUTH DAILY metformin 500 mg tablet 500 mg PO BID Qty: 180 0RF Follow-up/Referrals: Wojciech Jennings MD [Primary Care Provider] -
--- NOTE | 2022-04-05 19:33 | ED.UPPEXIN ---
HPI - Extremity Injury (Upper) General Chief Complaint: Extremity Injury, Upper Stated Complaint: lt hand injury Time Seen by Provider: 04/05/22 19:33 Source: patient, RN notes reviewed and old records reviewed Mode of arrival: ambulatory Limitations: no limitations Related Data Home Medications Medication Instructions Recorded Confirmed ergocalciferol (vitamin D2) 1,250 1,250 mcg PO WEEKLY 12/11/19 01/19/22 mcg (50,000 unit) capsule (Vitamin D2) Doterra On Guard 1 cap PO DAILY 02/07/20 01/19/22 glucosamine sulf dipot 1 cap PO DAILY 02/07/20 01/19/22 chlr,msm,chond 550 mg-C 30 mg-rachid 1 mg capsule (Glucosamine Chondroitin) meloxicam 15 mg tablet 15 mg PO DAILY 11/02/21 01/19/22 fluoride (sodium) 1.1 % dental 1 applic dental DAILY 11/06/21 01/19/22 cream (SF 5000 Plus) buspirone 5 mg tablet 5 mg PO TID PRN Anxiety 01/07/22 01/19/22 Allergies Allergy/AdvReac Type Severity Reaction Status Date / Time No Known Allergies Allergy Verified 01/25/22 06:57 Review of Systems Review of Systems: CONSTITUTIONAL: Denies fever, chills, or sweats. CARDIOVASCULAR: Denies chest pain, palpitations, or edema. RESPIRATORY: Denies cough or dyspnea. SKIN: Denies rash or itching. Denies lacerations or abrasions MUSCULOSKELETAL: Reports NEUROLOGIC: Denies numbness, or weakness. All systems reviewed & are unremarkable except as noted in HPI and below PMFSH Past Medical History Medical History Anxiety and depression Arthritis Depression Diabetes type 2, controlled Essential hypertension High cholesterol Hyperlipidemia Hypothyroidism IFG (impaired fasting glucose) Morbid obesity with BMI of 40.0-44.9, adult AMBER (obstructive sleep apnea) Sleep apnea Surgical History Surgical History S/P hysterectomy Family History Family History Father Carcinoma of colon Patient's father is Mother Family history of malignant neoplasm of breast in first degree relative Grandparent Family history of malignant neoplasm of breast Other Cerebrovascular accident Diabetes mellitus Family history of gout Social History Social History Social History: Smoking packs per day: 0.5 Smoking cigarettes per day: 10.0 Years smoked: 6 Smoking pack-years: 3.00 Smoking status: Former smoker Tobacco type: cigarettes Second hand tobacco smoke exposure: No Smoking end date: 06/13/84 Additional smoking assessment comments: QUIT 1994 Alcohol intake: never Substance use: never Substance use type: does not use Additional living arrangements comments: Pt and her mother live together. Gender identity (if verbalized by the patient): Female Sexual Orientation (if Verbalized by the Patient): Straight or Heterosexual Spiritual care concerns: No Comments At time of signature, agree with nursing past medical, surgical, social and family history. There is no relevant family history pertinent to the presenting complaint Exam Narrative: GENERAL: Well-appearing, well-nourished, and in no acute distress. HEAD: Normocephalic, atraumatic. EYES: PERRLA, conjunctivae clear NECK: Supple. CHEST: Speaks in full sentences. No respiratory distress. HEART: Regular rate and rhythm. Normal and equal peripheral pulses. EXTREMITIES: [Xxx] has normal strength and sensation, normal range of motion. No edema or ecchymosis. 5/5 strength with [xxx] flexion and extension. Normal sensation with sensitivity to light touch and pain. No point tenderness.? ?No open wounds, no skin tenting, no devitalized tissue or atrophy, no trophic changes, no obvious deformity, alignment normal, nearby joints and structures intact. Distal pulses palpable and equal bilaterally, skin warm, dry, pink. C
--- NOTE | 2022-04-05 19:38 | ED.UPPEXIN ---
HPI - Extremity Injury (Upper) General Chief Complaint: Extremity Injury, Upper Stated Complaint: lt hand injury Time Seen by Provider: 04/05/22 19:33 Source: patient, RN notes reviewed and old records reviewed Mode of arrival: ambulatory Limitations: no limitations History of Present Illness HPI narrative: 61 year old female presents to [facility] with complaints of injury to her left hand when 2 folding tables fell onto her hand last evening.. Patient has bruising and swelling to the dorsal aspect of her left hand and also some bruising and swelling to dorsal aspect of her middle finger on her left hand. Patient has full ROM of her left hand but is painful,strong left radial pulse present, nail beds franny briskly. MD complaint: injury to: left and hand Onset (ago): day(s) (1) Severity scale (1-10): 6 Exacerbating factors: movement of extremity Treatments prior to arrival: cold therapy and NSAIDS Related Data Home Medications Medication Instructions Recorded Confirmed ergocalciferol (vitamin D2) 1,250 1,250 mcg PO WEEKLY 12/11/19 01/19/22 mcg (50,000 unit) capsule (Vitamin D2) Doterra On Guard 1 cap PO DAILY 02/07/20 01/19/22 glucosamine sulf dipot 1 cap PO DAILY 02/07/20 01/19/22 chlr,msm,chond 550 mg-C 30 mg-rachid 1 mg capsule (Glucosamine Chondroitin) meloxicam 15 mg tablet 15 mg PO DAILY 11/02/21 01/19/22 fluoride (sodium) 1.1 % dental 1 applic dental DAILY 11/06/21 01/19/22 cream (SF 5000 Plus) buspirone 5 mg tablet 5 mg PO TID PRN Anxiety 01/07/22 01/19/22 Allergies Allergy/AdvReac Type Severity Reaction Status Date / Time No Known Allergies Allergy Verified 01/25/22 06:57 Review of Systems Review of Systems: CONSTITUTIONAL: Denies fever, chills, or sweats. CARDIOVASCULAR: Denies chest pain, palpitations, or edema. RESPIRATORY: Denies cough or dyspnea. SKIN: Denies rash or itching. Denies lacerations or abrasions MUSCULOSKELETAL: Reports pain and bruising to her left hand dorsal aspect and to middle finger NEUROLOGIC: Denies numbness, or weakness. All systems reviewed & are unremarkable except as noted in HPI and below PMFSH Past Medical History Medical History (Updated 04/06/22 @ 00:01 by Mario Santiago) Anxiety and depression Arthritis Depression Diabetes type 2, controlled Essential hypertension High cholesterol Hyperlipidemia Hypothyroidism IFG (impaired fasting glucose) Morbid obesity with BMI of 40.0-44.9, adult AMBER (obstructive sleep apnea) Sleep apnea Surgical History Surgical History (Updated 04/06/22 @ 17:30 by Angela Stanton NP) H/O breast biopsy History of carpal tunnel release of both wrists S/P hysterectomy Family History Family History Father Carcinoma of colon Patient's father is Mother Family history of malignant neoplasm of breast in first degree relative Grandparent Family history of malignant neoplasm of breast Other Cerebrovascular accident Diabetes mellitus Family history of gout Social History Social History (Updated 04/06/22 @ 17:30 by Angela Stanton NP) Social History: Smoking packs per day: 0.5 Smoking cigarettes per day: 10.0 Years smoked: 6 Smoking pack-years: 3.00 Smoking status: Former smoker Tobacco type: cigarettes Second hand tobacco smoke exposure: No Smoking end date: 06/13/84 Additional smoking assessment comments: QUIT 1994 Alcohol intake: never Substance use: never Substance use type: does not use Living arrangements: with family Additional living arrangements comments: Pt and her mother live together. Gender identity (if verbalized by the patient): Female Sexual Orientation (if Verbalized by the Patient): Straight or Heterosexual Spiritual care concerns: No Comments At time of signature, agree with nursing past medical, surgical, social and family history. There is no relevant family hi
== END 2022-04-05 19:48 | disposition home or self-care (01) ==
PROVIDERS: Emergency Provider Registered Nurse; PCP Family Medicine
DX: S60.222A Contusion of left hand, initial encounter (principal); W19.XXXA Unspecified fall, initial encounter; Z87.891 Personal history of nicotine dependence; E11.9 Type 2 diabetes mellitus without complications; I10 Essential (primary) hypertension; E78.00 Pure hypercholesterolemia, unspecified; E78.5 Hyperlipidemia, unspecified; E03.9 Hypothyroidism, unspecified; E66.01 Morbid (severe) obesity due to excess calories; Z68.41 Body mass index [BMI] 40.0-44.9, adult; G47.33 Obstructive sleep apnea (adult) (pediatric); M19.90 Unspecified osteoarthritis, unspecified site; F41.9 Anxiety disorder, unspecified; F32.A Depression, unspecified
CPT/HCPCS: 73130; 99213; G0463

== ENCOUNTER → 2023-01-29 07:42 | Outpatient (CLI) | payer BC, SELFPAY ==
--- NOTE | ~2023-01-29 | XR_ITS ---
EXAMINATION: XR shoulder RT min 2V INDICATION: Right shoulder pain TECHNIQUE: Four views of the right shoulder are submitted. COMPARISON: 12/28/2016 FINDINGS: Normal alignment. No fracture. There is mild osteoarthritis of the acromioclavicular and gl enohumeral joints. Soft tissues are unremarkable. IMPRESSION: 1. Mild osteoarthritis without acute osseous abnormality. Reviewed, dictated and finalized at location F.
--- NOTE | ~2023-01-29 | XR_ITS ---
EXAMINATION: XR hip BI 2V w AP pelvis DATE: 01/29/2023 08:17 INDICATION: Left hip pain TECHNIQUE: AP view the pelvis and two views of each hip were obtained. COMPARISON: None. FINDINGS: Bone alignment is normal. There is no fracture. There is mild osteoarthritis of the hips. P hleboliths are noted in the pelvis. IMPRESSION: 1. Mild osteoarthritis of the hips. Reviewed, dictated and finalized at location F.
== END ==
PROVIDERS: PCP Physician Assistant; Visit Provider Physician Assistant
DX: M19.011 Primary osteoarthritis, right shoulder (principal); M16.0 Bilateral primary osteoarthritis of hip
CPT/HCPCS: 73030; 73521

== ENCOUNTER → 2023-04-27 12:48 | Outpatient (CLI) | payer BC, SELFPAY ==
--- NOTE | ~2023-04-27 | MM_ITS ---
EXAMINATION: MM screening [facility] BI w sonia HISTORY: Screening mammogram TECHNIQUE: Craniocaudal and mediolateral oblique 3-D tomosynthesis images were obtained and synthetic 2-D images were generated. CAD analysis was submitted and interpreted. COMPARISON: 10/31/2021, 09/28/2019, 09/28/2017 BREAST PARENCHYMAL COMPOSITION: There are scattered areas of fibroglandular density. FINDINGS: No suspicious mass, calcification, or architectural distortion are identified in either angelita ast to suggest malignancy. There has been no suspicious interval change. IMPRESSION: 1. No mammographic evidence of malignancy. 2. Recommend routine screening mammography in one year. BI-RADS Category 1: Negative Reviewed, dictated and finalized at location A. [employer]
== END ==
PROVIDERS: PCP Physician Assistant; Visit Provider Physician Assistant
DX: Z12.31 Encounter for screening mammogram for malignant neoplasm of breast (principal)
CPT/HCPCS: 77063; 77067